=== PATIENT | female | born 1970 | race Two or more races ===

== ENCOUNTER → 2024-05-08 | Outpatient (CLI) | payer MEDICAID, SELFPAY ==
--- NOTE | 2024-05-08 15:15 | XR_ITS ---
Examination: Screening digital mammography, bilateral Computer aided detection 3-D breast Tomosynthesis, bilateral Date and time of exam: May 08, 2024 1522 hours Compared to mammograms dating to February 13, 2022 Indication: Screening Technique: Nonmagnified MLO, CC views of the breasts to been obtained, reconstructed from 3-D Tomosynthesis images. R2 computer aided detection program utilized for evaluation of suspicious masses and/or abnormal calcifications. 3-D Tomosynthesis images obtained. Findings: Scattered areas of fibroglandular density Bilateral benign calcifications Stable nodule nipple level right breast CC view Circumscribed 4 mm nodule outer left breast and 8mm nodule outer left breast on the CC view Impression: BI-RADS Category 0: Incomplete: Need additional imaging evaluation Recommend bilateral breast sonography follow-up
== END | disposition home or self-care (01) ==
PROVIDERS: PCP Registered Nurse Community Health; Referring Provider Registered Nurse Community Health; Visit Provider Registered Nurse Community Health
DX: Z12.31 Encounter for screening mammogram for malignant neoplasm of breast (principal); R92.8 Other abnormal and inconclusive findings on diagnostic imaging of breast
CPT/HCPCS: 77063; 77067

== ENCOUNTER → 2024-06-17 | Outpatient (CLI) | payer MEDICAID, SELFPAY ==
--- NOTE | 2024-06-17 15:00 | XR_ITS ---
Examination: Breast ultrasound complete, bilateral Date and time of exam: June 17, 2024 1550 hours INDICATIONS: Mammogram May 08, 2024 nodule nipple level right breast CC view, circumscribed 4 mm nodule outer left breast and 8mm nodule outer left breast on the CC view Technique: Real-time grayscale ultrasonographic imaging bilateral breasts, including all 4 quadrants as well as nipple retroareolar and axillary regions. Findings: Sonographic images right breast 11:00 cyst 14 x 14 mm No solid nodules Sonographic images left breast 9:00 cyst 8 x 8 mm No solid nodules Bilateral smaller breast cysts IMPRESSION: BI-RADS Category 2: Benign findings
== END | disposition home or self-care (01) ==
LOC: CDIM 15:15
PROVIDERS: PCP Registered Nurse Community Health; Referring Provider Registered Nurse Community Health; Visit Provider Registered Nurse Community Health
DX: N60.01 Solitary cyst of right breast (principal); N60.02 Solitary cyst of left breast
CPT/HCPCS: 76641

== ENCOUNTER 2024-07-08 21:27 | Emergency (ER) | payer MEDICAID, SELFPAY ==
--- NOTE | 2024-07-08 21:32 | EKG_ITS ---
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
--- NOTE | 2024-07-08 22:46 | XR_ITS ---
Examination: PA chest single view Technique: Upright PA chest single view Exam date and time: July 08, 2024 10:52 PM Comparison June 18, 2022 Indications: Chest pain Findings: Normal heart size Lungs are clear. The osseous structures are intact Impression: No active disease
--- NOTE | 2024-07-08 22:46 | PD.EDRME ---
Rapid Medical Screening Exam RME Arrival date/time: 07/08/24 21:27 53F with history of anxiety and GERD presents to ED with 1 day of CP that radiates to jaw and back. Possible dysuria. Chief Complaint: General Adult/Misc Complain
[2024-07-08 22:50] VITALS: BP 132/85; PULSE 78; RESP 20; TEMP 36.7; O2SAT 98
[2024-07-08 23:18] LABS: Basophils % (Auto) 0 % (0-2.5); Eosinophils # (Auto) 0.3 Thou/mm3 (0.0-0.5); Eosinophils % (Auto) 3 % (0-10); Hematocrit 39.8 % (36.0-46.0); Hemoglobin 13.2 g/dL (12.0-16.0); Immature Granulocytes % (Auto) 0 % (0-0); Immature Granulocytes Auto 0.04 Thou/mm3 (0.00-0.00); Lymphocytes # (Auto) 3.1 Thou/mm3 (1.0-4.8); Lymphocytes % (Auto) 34 % (10-50); Mean Corpuscular HGB Conc 33.2 g/dl (31.0-37.0); Mean Corpuscular Hemoglobin 28.9 pg (25.0-35.0); Mean Corpuscular Volume 87 fL (80-100); Monocytes # (Auto) 0.8 Thou/mm3 (0.0-0.8); Monocytes % (Auto) 8 % (0-12); Neutrophils % (Auto) 54 % (37-80); Nucleated Red Blood Cell % 0 /100 WBC (0); Platelet Count 422 Thou/mm3 (140-440); RDW Standard Deviation 41.6 fL (36.4-46.3); Red Blood Count 4.57 Miln/mm3 (4.00-5.20); White Blood Count 9.1 Thou/mm3 (3.6-11.0)
[2024-07-08 23:19] LABS: Collection Type, Urine Clean Catch; Squamous Epithelial Cell,Urine 0 /hpf (0-5)
[2024-07-08 23:26] LABS: Partial Thromboplastin Time 26.5 Seconds (22.0-36.0); Prothrombin Time 10.8 Seconds (9.0-12.2)
[2024-07-08 23:37] LABS: Bilirubin,Urine Negative (Negative); Blood,Urine Negative (Negative); Clarity,Urine Clear (Clear/Hazy); Color,Urine Colorless (Lt Yel-Yel); Culture Indicated,Urine Not Indicated; Glucose, Urine Negative (Negative); Ketones,Urine Negative (Negative); Leukocyte Esterase,Urine Negative (Negative); Nitrite,Urine Negative (Negative); PH,Urine 6.5 (5.0-7.0); Protein,Urine Negative (Neg - Trace); RBC,Urine 3 /hpf (0-3); Specific Gravity,Urine 1.005 (1.001-1.035); Urobilinogen,Urine Negative mg/dL (0.0-1.0); WBC,Urine < 1 /hpf (0-5)
[2024-07-09] LABS: Troponin I < 0.002 ng/mL (0.0-0.045)
[2024-07-09 00:01] LABS: Alanine Aminotransferase 15 U/L (10-49); Albumin, Serum 4.6 gm/dL (3.5-5.0); Albumin/Globulin Ratio 1.7 (1.2-2.2); Alkaline Phosphatase 79 U/L (46-116); Anion Gap 9 (7-16); Aspartate Amino Transferase 20 U/L (0-34); BUN/Creatinine Ratio 13 Ratio (12-20); Bilirubin,Total 0.4 mg/dL (0.3-1.2); Blood Urea Nitrogen 10 mg/dL (9-23); Calcium 10.1 mg/dL (8.3-10.6); Calcium (Corrected) 10.1 mg/dL (8.5-10.1); Carbon Dioxide 29.4 mMol/L (20.0-31.0); Chloride 103 mMol/L (98-107); Creatinine (Component) 0.8 mg/dL (0.6-1.3); Globulin 2.7 gm/dL (2.3-3.5); Glucose 105 mg/dL (74-106); Osmolality,Calculated 280 (275-295); Potassium 4.2 mMol/L (3.4-5.1); Sodium 141 mMol/L (136-145); Total Protein 7.3 gm/dL (5.7-8.2); eGFR > 60 See Note
[2024-07-09 06:13] LABS: Troponin I < 0.002 ng/mL (0.0-0.045)
[2024-07-09 06:15] VITALS: BP 118/82; PULSE 72; RESP 19; TEMP 36.6; O2SAT 99
--- NOTE | 2024-07-09 07:01 | EKG_ITS ---
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
--- NOTE | 2024-07-09 07:17 | PD.EDADULT ---
ED General RME/HPI General Chief complaint: General Adult/Misc Complain Stated complaint: CHEST PAIN,HEADACHE Time Seen by Provider: 07/09/24 06:59 Arrival date/time: 07/08/24 21:27 CC: Chest pressure HPI onset approximately 8:00 last night radiating up into her jaw and to her head, lasting approximately 1 hour patient was reassessed at 0 717 on July 09. Patient has a history of anxiety currently states that all of her symptoms are completely resolved. Patient denies fever chest pain shortness of breath difficulty breathing headache nausea vomiting or diarrhea. No other complaints at this time RME / HPI RME / HPI narrative: 07/08/24 21:27 53F with history of anxiety and GERD presents to ED with 1 day of CP that radiates to jaw and back. Possible dysuria. Related Data Home Medications ?Medication ?Instructions ?Recorded ?Confirmed albuterol sulfate 90 mcg/actuation 2 puff inhalation PRN PRN 12/15/13 aerosol inhaler (ProAir HFA) SHORTNESS OF BREATH ##0 lorazepam 1 mg tablet 2 mg PO BID #0 tabs 12/15/13 escitalopram oxalate 10 mg tablet 10 mg PO QDAY #0 tabs 07/15/14 (Lexapro) esomeprazole magnesium 20 mg 22.3 mg PO BID ##0 07/15/14 capsule,delayed release (Nexium) Previous Rx's ?Medication ?Instructions ?Recorded rizatriptan 10 mg disintegrating See Rx Instructions PO .COMPLEX 09/21/23 tablet (Maxalt-[employer]) #30 tabs Allergies Allergy/AdvReac Type Severity Reaction Status Date / Time No Known Allergies Allergy Unknown Uncoded 12/20/23 22:19 Review of Systems Review of Systems Narrative Review of Systems: GEN: No fever, no chills, no weight loss EYES: No discharge, no visual changes, no pain HEENT: No ear pain, no congestion, no sore throat PULM: No shortness of breath, no cough, no congestion CV: No chest pain, no dyspnea on exertion, no palpitations GI: No nausea, no vomiting, no diarrhea, no pain, no constipation : No frequency, no urgency, no dysuria MUSC/SKEL: No joint pain, no back pain SKIN: No rash PSYCH: No hallucinations, no depression HEME/LYMPH: No easy bleeding or bruising tendencies NEURO: No weakness, no headache Past Medical History Past Medical History CARDIAC: Negative Congestive Heart Failure RESPIRATORY: Negative Chronic Obstructive Pulmonary Disease (COPD) GENITOURINARY: Negative Renal Disease ENDOCRINE: Negative Diabetes Mellitus Type 1 or Diabetes Mellitus Type 2 Social History SMOKING STATUS: Never smoker ED Exam Narrative Physical exam: [General: Obese not in any acute distress Head normocephalic HEENT: Within acceptable limits Neck is supple nontender Chest equal chest rise nontender to palpation Respiratory: Clear to auscultation no wheezes crackles or rubs CV: Rate rhythm is regular no murmurs rubs or clicks Abdomen is distended secondary to body habitus soft nontender no masses positive bowel sounds all 4 quadrants Back: No CVA tenderness no spinous process tenderness from cervical spine thoracic and lumbar spine Skin: Intact no petechiae rash induration ulceration or crepitus Extremities: Moving all extremity against resistance cap refill less than 2 seconds neurosensory intact Neuro: Awake alert oriented x3 Glascow coma 15 no focal deficits] Course Quality Measures none Orders Category Date Time Status EKG (ED ONLY) *Do not use* NOW Care 07/08/24 21:32 Completed EKG (ED ONLY) *Do not use* NOW Care 07/09/24 07:01 Completed EKG (ED Only) Stat Exams 07/08/24 21:32 Ordered EKG (ED Only) Stat Exams 07/09/24 07:01 Ordered XR chest 1V portable Stat Exams 07/08/24 22:46 Completed CBC Stat Lab 07/08/24 22:59 Completed Comprehensive Metabolic Panel Stat Lab 07/08/24 22:59 Completed INR [Prothrombin Time with INR] Stat Lab 07/08/24 22:59 Completed PTT [Partial Thromboplastin Time] Stat Lab 07/08/24 22:59 Completed Troponin I Stat Lab 07/08/24 22:59 Completed Troponin I Stat Lab 07/09/24 05:15 Completed Urinalysis, C/S if Indicated Stat Lab 07/08/24 23:12 Completed Vital Signs Vital signs: Vital Signs Temperature 98.1 F 07/08/24 22:50 Pulse Rate 78 07/08/24 22:50 Respiratory Rate 20 07/08/24 22:50 Blood Pressure 132/85 H 07/08/24 22:50 Pulse Oximetry (%) 98 07/08/24 22:50 Oxygen Delivery Method Room Air 07/08/24 22:50 [facility] Patient data External records reviewed:: [facility] previous records Clinical information provided by:: patient Social determinants that could affect healthcare access:: none Patient has the following chronic illnesses:: Anxiety How is presenting disease/condition affected by chronic disease/condition?: uneffected by Evaluation data The following diagnostics were reviewed and interpreted by me:: lab results, radiology exam(s) and EKG tracing(s) Lab and/or radiology exams considered but not ordered:: EKG performed at 2139 shows a ventricular rate of 74 [place] interval 163 QRS of 82 QTc of 401 this is sinus rhythm with subtle ST segment changes Repeat EKG at 0703 on July 09 shows a ventricular rate of 69 [place] interval 142 QRS of 8 9 QTc of 425 is normal sinus rhythm. Initial and repeat troponin are negative CBC shows no acute leukocytosis anemia thrombocytopenia CMP shows no acute electrolyte imbalances renal impairment transaminitis or T. bili elevation Urine is negative for urinary tract infection Chest x-ray shows the patient has no acute finding Interpretation Summary: Chest pain noncardiac I do not feel that there is any acute finding this ended approximately 1 hour after arrival follow-up shows no acute finding patient will be discharged home I suspect is more anxiety. Medications Medications considered but not ordered:: None Medication administrations:: None Consultations Consultation(s) initiated? (list below): No Diagnosis Differential Diagnosis ED Complaint MDM: ACS AR pneumonia Most likely diagnosis given after review of the tests above:: Chest pain noncardiac Admission Indicated Admission indicated?: not indicated Explain why admission is indicated or not indicated:: Stable for outpatient follow-up Admission Request Was there a request for admission?: No Disposition Plan Disposition Plan: Discharge Discharge Attestation Discharge Attestation: The patient and all family members were given an opportunity to ask questions and understood the discharge instructions. Discharge instructions specifically effects, indications for sooner follow up or return to the emergency department, and the expected course of current diagnosis. Patient condition: Stable Medical Decision Making Differential Diagnosis Differential Diagnosis: ACS AR pneumonia Lab Data 07/08/24 22:59 07/08/24 22:59 Labs: Lab Results 07/08/24 07/08/24 07/09/24 Range/Units 22:59 23:12 05:15 WBC 9.1 (3.6-11.0) Thou/mm3 RBC 4.57 (4.00-5.20) Miln/mm3 Hgb 13.2 (12.0-16.0) g/dL Hct 39.8 (36.0-46.0) % MCV 87 (80-100) fL MCH 28.9 (25.0-35.0) pg MCHC 33.2 (31.0-37.0) g/dl RDW Std Deviation 41.6 (36.4-46.3) fL Plt Count 422 (140-440) Thou/mm3 Neut % (Auto) 54 (37-80) % Lymph % (Auto) 34 (10-50) % [place] % (Auto) 8 (0-12) % Eos % (Auto) 3 (0-10) % Baso % (Auto) 0 (0-2.5) % Neut # (Auto) 5.0 (1.8-7.7) Thou/mm3 Lymph # (Auto) 3.1 (1.0-4.8) Thou/mm3 [place] # (Auto) 0.8 (0.0-0.8) Thou/mm3 Eos # (Auto) 0.3 (0.0-0.5) Thou/mm3 Baso # (Auto) 0.0 (0.0-0.2) Thou/mm3 Immature Gran # (Auto) 0.04 H (0.00-0.00) Thou/mm3 Absolute Nucleated RBC 0.00 (0.00-0.00) Thou/mm3 Immature Gran % 0 (0-0) % Nucleated RBC % 0 (0) /100 WBC PT 10.8 (9.0-12.2) Seconds INR 1.0 (0.9-1.3) APTT 26.5 (22.0-36.0) Seconds Sodium 141 (136-145) mMol/L Potassium 4.2 (3.4-5.1) mMol/L Chloride 103 (98-107) mMol/L Carbon Dioxide 29.4 (20.0-31.0) mMol/L Anion Gap 9 (7-16) BUN 10 (9-23) mg/dL Creatinine 0.8 (0.6-1.3) mg/dL Estim Creat Clear Calc Not Performed. eGFR > 60 (60 - ) See Note BUN/Creatinine Ratio 13 (12-20) Ratio Glucose 105 (74-106) mg/dL Calculated Osmolality 280 (275-295) Calcium 10.1 (8.3-10.6) mg/dL Corrected Calcium 10.1 (8.5-10.1) mg/dL Total Bilirubin 0.4 (0.3-1.2) mg/dL AST 20 (0-34) U/L ALT 15 (10-49) U/L Alkaline Phosphatase 79 (46-116) U/L Troponin I < 0.002 < 0.002 (0.0-0.045) ng/mL Total Protein 7.3 (5.7-8.2) gm/dL Albumin 4.6 (3.5-5.0) gm/dL Globulin 2.7 (2.3-3.5) gm/dL Albumin/Globulin Ratio 1.7 (1.2-2.2) Ur Collection Type Clean Catch Urine Color Colorless A (Lt Yel-Yel) Urine Clarity Clear (Clear/Hazy) Urine pH 6.5 (5.0-7.0) Ur Specific [place] 1.005 (1.001-1.035) Urine Protein Negative (Neg - Trace) Urine Glucose (UA) Negative (Negative) Urine Ketones Negative (Negative) Urine Blood Negative (Negative) Urine Nitrite Negative (Negative) Urine Bilirubin Negative (Negative) Urine Urobilinogen (Auto) Negative (0.0-1.0) mg/dL Ur Leukocyte Esterase Negative (Negative) Urine RBC 3 (0-3) /hpf Urine WBC < 1 (0-5) /hpf Ur Squamous Epith Cells 0 (0-5) /hpf Urine Bacteria None (None) Ur Culture Indicated? Not Indicated Discharge Plan Plan Patient Disposition: HOME (Self Care) Patient condition on transfer: Stable Prescriptions/Referrals Prescriptions/Med Rec: No Action lorazepam 1 MG tablet 2 mg PO BID Qty: 0 albuterol sulfate [ProAir HFA] 8.5 GM HFA aerosol inhaler 2 puff Inhalation PRN PRN (Reason: SHORTNESS OF BREATH) Qty: 0 esomeprazole magnesium [Nexium] 20 MG capsule,delayed release(DR/EC) 22.3 mg PO BID Qty: 0 Patient Comments: TO SUPPRESS GASTRIC ACID SECRETION escitalopram oxalate [Lexapro] 10 MG tablet 10 mg PO QDAY Qty: 0 rizatriptan [Maxalt-[employer]] 10 mg tablet,disintegrating See Rx Instructions .ROUTE .COMPLEX Qty: 30 0RF Rx Instructions: take 1 tab at onset of headache; if no relief may repeat 1 tab after at least 2 hrs; max = 3 tabs/24 hr Referrals: John Garcia MD [Physician] - In 1 week No Primary/Family,Physician [Primary Care Provider] - In 1 week Problem List Clinical Impression: Chest pressure Patient/Caregiver Discharge Instructions Other Activity Instructions:: Follow-up with your primary Education Materials: ED Chest Pain, Uncertain Cause Print Language: U[place] Stand Alone Forms: Melissa Award Info., Work/School Release, Patient Portal Info Letter PA/SIGNALS COLLECTOR/ANALYST Supervising Physician PA/SIGNALS COLLECTOR/ANALYST Supervising Physician: Pascual Price ENP
== END 2024-07-09 07:45 | disposition home or self-care (01) ==
PROVIDERS: Physician Assistant; Emergency Provider Emergency Medicine
DX: R07.89 Other chest pain (principal)
CPT/HCPCS: 36415; 71045; 80053; 81001; 84484; 85025; 85610; 85730; 93005; 99283